=== PATIENT | female | born 1960 | race Caucasian/White ===

== ENCOUNTER → 2023-09-23 14:30 | Outpatient (REF) | payer BC, SELFPAY | LOC: HWWDC 14:30 | PROVIDERS: ATTENDING PHYSICIAN Physician Assistant Medical | DX: Z12.31 Encounter for screening mammogram for malignant neoplasm of breast (principal) | CPT/HCPCS: 77063; 77067 ==

== ENCOUNTER → 2024-02-28 11:37 | Outpatient (REF) | payer BC, SELFPAY | LOC: MRI 3T 11:37 | PROVIDERS: ATTENDING PHYSICIAN Ophthalmology; FAMILY PHYSICIAN Physician Assistant Medical | DX: R42 Dizziness and giddiness (principal) | CPT/HCPCS: 70543; 70551 ==

== ENCOUNTER → 2024-09-20 07:31 | Outpatient (REF) | payer BC, SELFPAY | LOC: RCS 07:31 | PROVIDERS: ATTENDING PHYSICIAN Physician Assistant Medical | DX: R06.02 Shortness of breath (principal); R00.2 Palpitations | CPT/HCPCS: 93017; 71046 ==

== ENCOUNTER → 2024-10-16 15:58 | Outpatient (REF) | payer BC, SELFPAY | LOC: HWRCS 15:58 | PROVIDERS: ATTENDING PHYSICIAN Internal Medicine Cardiovascular Disease; FAMILY PHYSICIAN Physician Assistant Medical | DX: R00.2 Palpitations (principal); R06.02 Shortness of breath | CPT/HCPCS: 93306 ==

== ENCOUNTER → 2025-02-02 14:34 | Outpatient (REF) | payer BC, SELFPAY | LOC: HWWDC 14:34 | PROVIDERS: ATTENDING PHYSICIAN Physician Assistant Medical | DX: M85.80 Other specified disorders of bone density and structure, unspecified site (principal); Z12.31 Encounter for screening mammogram for malignant neoplasm of breast | CPT/HCPCS: 77063; 77067; 77080 ==